=== PATIENT | male | born 1965 | race Two or more races ===

== ENCOUNTER → 2019-11-26 | Outpatient (CLI) | payer OTHER ==
[2015-09-14 15:53] VITALS: BP 140/100
[~2019-11-26] MED LIST: LIDO700A4 TD; OXYC-411 PO; TRAM-48 PO
--- NOTE | 2019-11-26 11:04 | RAD ---
EXAMINATION: Magnetic resonance imaging (MRI) of the lumbar spine without contrast 11/26/2019 10:30 AM HISTORY: Low back pain TECHNIQUE: Multiplanar multi-weighted MRI of the lumbar spine was performed without intravenous contrast using the standard lumbar spine protocol. Contrast information: None administered. COMPARISON: MRI lumbar spine 08/17/2015 FINDINGS: There is chronic compression fracture involving L1 with 75 percent height loss and moderate retropulsion. There is focal kyphosis of the thoracolumbar spine centered at L1. Otherwise, lumbar spine alignment is normal. Conus medullaris remains at L1. Distal spinal cord signal intensity is normal in all sequences. There is mild disc height loss at L1-L2, progressed since 08/17/2015. There is disc height loss at additional levels of lumbar spine with associated disc desiccation. There is annular fissure at L5-S1. Marrow signal intensity is within normal limits. Abdominal aorta is normal in caliber. No suspicious renal mass. Retroperitoneal abnormality. Visualized portions of the sacrum appear intact. Sclerotic density in the left posterior iliac bone measures 7 mm and may represent a bone island. L1-L2: There is a disc bulge asymmetric to the left with left far lateral disc protrusion. Is mild facet arthropathy. There is left lateral recess stenosis. Moderate left neuroforaminal stenosis. Mild spinal canal stenosis, exacerbated by retropulsion of the L1 vertebral body. L2-L3: There is mild disc bulge. No significant facet arthropathy. Mild bilateral neuroforaminal stenosis. Mild spinal canal stenosis, exacerbated by epidural lipomatosis. L3-L4: There is mild disc bulge. Mild facet arthropathy. Mild bilateral neuroforaminal stenosis. No significant spinal canal stenosis although there is epidural lipomatosis. L4-L5: There is a moderate disc bulge with right central and foraminal disc extrusion. There is right lateral recess stenosis with moderate right neuroforaminal stenosis. Mild/moderate spinal canal stenosis, exacerbated by epidural lipomatosis. Findings are identified examination. L5-S1: There is a disc bulge with left far lateral disc protrusion. There is moderate right and mild to moderate left facet arthropathy. Mild bilateral neuroforaminal stenosis. No significant spinal canal stenosis. IMPRESSION: Mild to moderate degenerative changes of the lumbar spine as described in detail above. Findings are exacerbated by epidural lipomatosis. Chronic superior plate compression fracture of L1 without significant interval change. There is mild progression of L1-L2 degenerative disc disease. Right central and foraminal disc extrusion at L4-L5 appears progressed with increased right lateral recess stenosis. Examination from 10/18/2014. Possible 7 mm bone island of the left posterior iliac bone. Electronically signed by: Colleen Ba MD (11/26/2019 11:01 AM) [id number]
== END | disposition home or self-care (01) ==
LOC: MRI 09:31
PROVIDERS: ATTEND Family Medicine
DX: M48.56XA Collapsed vertebra, not elsewhere classified, lumbar region, initial encounter for fracture (principal); M47.817 Spondylosis without myelopathy or radiculopathy, lumbosacral region; M51.27 Other intervertebral disc displacement, lumbosacral region; M51.36 Other intervertebral disc degeneration, lumbar region; M40.295 Other kyphosis, thoracolumbar region; Q05.7 Lumbar spina bifida without hydrocephalus; E88.2 Lipomatosis, not elsewhere classified; M48.061 Spinal stenosis, lumbar region without neurogenic claudication
CPT/HCPCS: 72148

== ENCOUNTER → 2021-11-30 | Outpatient (CLI) | payer OTHER ==
[2015-09-14 15:53] VITALS: BP 140/100
[~2021-11-30] MED LIST changes: -OXYC-411 PO; +OXYC1TAB20 PO
--- NOTE | 2021-11-30 14:59 | RAD ---
EXAM: Pelvis and left hip, 3 views; lumbar spine, 3 views; bilateral elbows, 3 views; bilateral shoul ders, 3 views. HISTORY: Pain. Fall. COMPARISON: None. FINDINGS: Bilateral shoulders: 3 views of both shoulders are obtained. There is no acute fracture, dislocation or subluxation. There is mild bilateral marginal glenohumeral joint spurring. There is a small inferi davin directed distal right clavicular spur. There is degenerative change along the left greater tuber osity at the rotator cuff insertion. Pelvis and left hip: A frontal view of the pelvis and frontal and frog-leg views left hip are obtaine d. There is no fracture, dislocation or subluxation. Lumbar spine: 3 views of the lumbar spine are obtained. There is a severe chronic appearing wedge com pression fracture of L1. There is retropulsion of the cortex at this level contributing to central ca nal stenosis. There is a mild chronic appearing compression fracture of L5. There is minimal chronic decreased vertebral body height at T11. There is multilevel endplate remodeling, osteophytosis and fa cet arthropathy. There is disc space narrowing predominantly at T12-L1. Bilateral elbows: There is moderate to severe bilateral elbow osteoarthritis with associated marginal trochlear and radial head spurring. Evaluation for elbow effusion is limited due to image projection . No convincing displaced fracture is seen. There is a chronic fragmented spur adjacent to the right radial head. There is a 1.4 cm osseous excrescence along the dorsal aspect of the distal right humeru s, likely the sequela of remote injury or exostosis. IMPRESSION: 1. 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 No convincing acute fracture is seen. 2. Severe chronic appearing compression fracture of L1, mild chronic appearing compression fracture o f L5 and minimal chronic appearing decreased vertebral body height at T11. 3. Multilevel degenerative change involving the lumbar spine, described in detail above. 4. No acute finding involving the pelvis or left hip. 5. Mild bilateral glenohumeral and right acromioclavicular joint osteoarthritis. Electronically signed by: Rachna Kelly MD (11/30/2021 2:57 PM) [id number]
== END ==
LOC: RAD 14:03
PROVIDERS: ATTEND Family Medicine
DX: M19.022 Primary osteoarthritis, left elbow (principal); M19.021 Primary osteoarthritis, right elbow; M19.012 Primary osteoarthritis, left shoulder; M19.011 Primary osteoarthritis, right shoulder; M47.816 Spondylosis without myelopathy or radiculopathy, lumbar region; M48.05 Spinal stenosis, thoracolumbar region; M25.78 Osteophyte, vertebrae; M25.422 Effusion, left elbow; M25.421 Effusion, right elbow; W00.9XXA Unspecified fall due to ice and snow, initial encounter
CPT/HCPCS: 72100; 73502; 73030-50; 73080-50